=== PATIENT | male | born 1960 | race African-American/Black ===

== ENCOUNTER 2018-03-20 12:04 | Inpatient (IN) | payer BC, OTHER ==
[2018-03-20] VITALS (12 sets, daily range): BP systolic 121–192; BP diastolic 79–114
[~2018-03-20] VITALS: Ht 190.5 cm; Wt 139.3 kg
--- NOTE | ~2018-03-20 | EKG ---
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 : 1960 Requested By: Linda Barillas Order Number: [id number] MD: Roddy Betancourt Measurements Intervals [place] Rate: 79 P: 58 [place]: 169 QRS: 55 QRSD: 96 T: 86 QT: 381 QTc: 437 Interpretive Statements Sinus rhythm Inferior infarct, acute (RCA) Lateral leads are also involved No previous ECG available for comparison Electronically Signed On 03-22-2018 8:59:30 CDT by Roddy Betancourt [email or web address] <ELECTRONICALLY SIGNED> By: Roddy Betancourt MD, [facility] 03/22/18 0859 1159 1159 Roddy Betancourt MD, FACC /EPI
--- NOTE | ~2018-03-20 | CATHLAB ---
[facility] [address] [place] [address] INVASIVE PROCEDURE REPORT Name: ALLEGRA CHARLES Room #: 206-P [facility] IN M.R.#: [id number] Admission: 03/20/18 Attend Phys: Shade Brown, Discharge: 03/22/18 Date of : 56 Date of Service: 03/22/182003 Report #: [id number] THIS REPORT FOR: //name// APPROVED REPORT Study performed: 03/20/2018 12:31:07 Patient Details Patient Status: In-Patient Room #: The patient is a 57 year-old male Event Personnel Shade Brown Senior Field Service Engineer, Marcos Mar RN, Brent Urbano RN RN, Esvin Hawkins, Chaparrita Mcclendon Monitor Procedures Performed Art Access - R femoral artery* 11413 Initial Mod Sed Same Phys/QHP Gr5y 122496 62634 Mod Sed Same Phys/QHP Ea 047016 Left Heart Cath w/or w/o Coronaries 4124309 [facility] Aortogram Abdominal Peripheral Angio 862179 MARCI Revasc AMI Total/Sub Single RCA C9606 AMIREVSING Hemostasis w/ Mynx Indication STEMI Procedure Narrative The patient was brought emergently to the Cardiac Catheterization Laboratory and was prepped and draped in a sterile manner. The Right Groin^ was infiltrated with 1% Lidocaine subcutaneous anesthesia. A PINNACLE 6FR Sheath #[id number] sheath was inserted into the RFA^. Coronary angiography was performed using coronary diagnostic catheters. The right coronary system was accessed and visualized with a JR 4 catheter. The left coronary system was accessed and visualized with a JL 5 catheter. The left ventricle was accessed and visualized with a Pigtail catheter. Left ventriculogram was performed in PALMER projection. An aortogram of the abdominal aorta was performed. Pre-demployment femoral angiogram was performed . Closure device was deployed with a 6 Fr Mynx. The patient tolerated the procedure well and there were no complications associated with the procedure. There was no hematoma. Intraoperative Conscious Sedation Sedation start time: 12:48 Case end Time: 13:[address] [address] INVASIVE PROCEDURE REPORT Name: RAMIRO CHARLESY Room #: [facility] IN ..#: [id number] Admission: 03/20/18 Attend Phys: Shade Brown, Discharge: 03/22/18 Date of : 56 Date of Service: 03/22/[address] [facility] Report #: [id number] Fentanyl 50 mcg Versed 2 mg Fluoro Time: 6.60 minutes Dose: DAP 69253.00 cGycm2 1580 mGy Contrast Type and Amount: Visipaque 180 ml Hemodynamics The aortic pressure is 113/65 mmHg with a mean of 83 mmHg. The left ventricular pressure is 137/13 mmHg with a mean of mmHg. The left ventricular end diastolic pressure is 15 mmHg. PCI Technique Lesion Percutaneous coronary intervention was performed on the mid right coronary artery. A LAUNCHER 6FR JR 4 #[id number] Guide Catheter was used to engage the ostium. A Luge Wire .014 x 182CM #[id number] Interventional Guidewire was used to cross the lesion. BALLOON DILATION A Balloon catheter Sprinter OTW 4.0 x 15 #[id number] was inserted and inflated up to 8.00atm for 23seconds. Additional Inflation: 8.00atm for 25seconds. STENT DEPLOYMENT A drug-eluting stent RESOLUTE BINTA RX 4.5 X 18 #[id number] was inserted and inflated up to 16.00atm for 36seconds. Conclusion #1 successful emergent PTCA stent of a subtotally occluded mid dominant RCA with clot formation healing 0% residual KASSIE grade 3 flow with placement of a 4.5 x 18 Binta drug-eluting stent postdilated to 4.8 mm KASSIE grade 3 blush also noted #2 left main large mildly disease giving rise to LAD and circumflex #3 a large LAD which extends to the apex with mild irregularities no occlusive disease #4 circumflex marginal nondominant but also large in caliber in moderate distribution no occlusive disease #5 normal left jugular size ejection fraction lower limits of normal with subtle inferior wall leg (expect this to improve) #6 abdominal aorta is intact there may be evidence of a small aneurysm or tortuosity. Will evaluate abdominal ultrasound outpatient <ELECTRONICALLY SIGNED> By: Shade Brown MD, FACC 03/22/182003 03 03 Shade Brown MD, FACC /INF
--- NOTE | ~2018-03-20 | H ---
[facility] [place] [address] HISTORY AND PHYSICAL Name: ALLEGRA CHARLES Room #: 206-P ADM IN M.R.#: [id number] Admission: 03/20/18 Attend Phys: Shade Brown MD, Discharge: Date of : 56 Report #: [id number] THIS REPORT FOR: //name// CC: Esvin Rodriguez MD FAM unknown Shade Thornton DATE OF SERVICE: 03/20/2018 HISTORY OF PRESENT ILLNESS: The patient is a 57-year-old -Polish male. He presents to the Emergency Room, brought in by his with an acute inferior wall myocardial infarction, significant ST elevation in inferior leads. No prior cardiac history. Multiple risk factors. One to two pack a day smoker, hypertension, hypercholesterolemia. He does take atorvastatin 20, lisinopril. He had one episode of pain last week with some minimal exertion, no recurrence of this, not had any warning of this, felt fairly well. 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 He used to work years for [employer] with a very physical job. He said on the couch this morning had sudden onset of chest pain substernally with significant diaphoresis. Subsequently, his brought him to the Emergency Room. His pain has improved with heparin, morphine, aspirin and Lipitor but still has of injury. His rhythm has been stable. PAST MEDICAL HISTORY: Positive for bladder cancer, pneumothorax remotely, hypertension, hypercholesterolemia and had a lens replacement or revision 9 days ago. FAMILY HISTORY: Mother had premature coronary disease with an infarct in her 50s. SOCIAL HISTORY: He is , 2 daughters. He used to work years for [employer]. 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 REVIEW OF SYSTEMS: Negative except for some nocturia. Lab work is currently pending. PHYSICAL EXAMINATION: GENERAL: He is alert, pleasant. VITAL SIGNS: Pulse 79, blood pressure 140/80. HEENT: Eyes reveal xanthelasmas. Pharynx is clear. NECK: Shows preserved upstrokes without JVD or bruits. LUNGS: Clear. CARDIOVASCULAR: Regular rate and rhythm, S1, S2. ABDOMEN: Soft, obese, nontender. EXTREMITIES: No edema. Pulses diminished, but intact. [facility] [address] [place] [address] HISTORY AND PHYSICAL Name: ALLEGRA CHARLES Room #: [address] [place] [address] IN M.R.#: [id number] Admission: 03/20/18 Attend Phys: Shade Brown MD, Discharge: Date of : 56 Report #: [id number] NEUROLOGIC: Nonfocal. SKIN: Warm and dry without xanthoma or ulcer. MUSCULOSKELETAL: Mild arthritic changes are noted. ASSESSMENT: 1. Acute inferior wall myocardial infarction less than 2 hours into this event. 2. Hypertension. 3. Hypercholesterolemia. 4. Continued tobacco use. RECOMMENDATIONS AND PLAN: We will proceed emergently to the catheterization lab for possible angiography and intervention. He has been given morphine, heparin, aspirin and 80 of Lipitor. Risks, benefits, alternatives discussed very quickly with him and his . We are proceeding on emergently to the microbiology lab assistant. Thank you for asking me to assist in the care of this patient. By: 1244 1522 Shade Brown MD, FACC /nt
--- NOTE | ~2018-03-20 | EKG ---
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 : 1960 Requested By: Linda Barillas Order Number: [id number] MD: Roddy Betancourt Measurements Intervals [place] Rate: 71 P: 33 [place]: 171 QRS: 5 QRSD: 90 T: 91 QT: 386 QTc: 420 Interpretive Statements Sinus rhythm Atrial premature complexes Inferior infarct, acute (RCA) No previous ECG available for comparison Electronically Signed On 03-22-2018 9:00:01 CDT by Roddy Betancourt [email or web address] <ELECTRONICALLY SIGNED> By: Roddy Betancourt MD, [facility] 03/22/18 0900 1213 12 Roddy Betancourt MD, FACC /EPI
[2018-03-20] MEDS ORDERED: LISINOPRIL20 MG PO (12:20)
[2018-03-20] MEDS ORDERED: LIPITOR 20 MG T20 M1 PO (12:20)
[2018-03-20 12:21] LABS: ABSOLUTE NEUTROPHILS 3.7 thou/uL (1.4-8.2); HEMATOCRIT 45.6 % (42.0-52.0); HEMOGLOBIN 15.4 gm/dL (14.0-18.0); LYMPHOCYTES 44.5 % (24.0-44.0); MCHC 33.8 g/dL (28.0-37.0); MCV 91.9 fL (80.0-100.0); MONOCYTES 10.4 % (1.0-8.0); PLATELET COUNT 283 thou/uL (150-400); POLYS 41.1 % (36.0-66.0); RBC 4.96 mil/uL (4.50-6.00); RDW 13.9 % (10.5-14.5); WBC 8.9 thou/uL (4.0-11.0)
[2018-03-20] MEDS ORDERED: HYDROCHLOROTHIA25 M2 PO (12:21)
[2018-03-20 12:28] LABS: ANION GAP 9 mmol/L (7-16); BUN 18 mg/dL (7-18); CALCIUM 9.1 mg/dL (8.5-10.1); CHLORIDE 104 mmol/L (98-107); CO2 29 mmol/L (21-32); CREATININE 1.3 mg/dL (0.7-1.3); GLUCOSE 125 mg/dL (74-106); POTASSIUM 3.7 mmol/L (3.5-5.1); SODIUM 142 mmol/L (136-145)
[2018-03-20 12:36] LABS: ALBUMIN 3.9 g/dL (3.4-5.0); SGOT 18 U/L (15-37); SGPT 41 U/L (30-65); TOTAL BILIRUBIN 0.5 mg/dL (<0.1-1.0); TOTAL PROTEIN 7.7 g/dL (6.4-8.2); TROPONIN-I <0.06 ng/mL (<0.06)
[2018-03-21] VITALS (7 sets, daily range): BP systolic 118–155; BP diastolic 69–96
[2018-03-21 05:41] LABS: CHOLESTEROL 132 mg/dL (<200); HDL CHOLESTEROL 32 mg/dL (>40); LDL CHOLESTEROL 79 mg/dL (<100); TC:HDL 4.1 Ratio (Not establshd); TRIGLYCERIDE 107 mg/dL (<150); VLDL 21 mg/dL (<40)
[2018-03-21 05:42] LABS: SERUM ASSESSMENT Clear
[2018-03-21 05:47] LABS: TROPONIN-I 2.48 ng/mL (<0.06)
[2018-03-22 04:46] VITALS: BP 122/75
[2018-03-22 04:49] VITALS: BP 122/75
[2018-03-22] MEDS ORDERED: METOPROLOL SUCC25 M1 PO (06:48)
[2018-03-22] MEDS ORDERED: EFFIENT10 MG PO (06:48)
[2018-03-22] MEDS ORDERED: ASPIR-TRIN325 MG PO (06:48)
[2018-03-22 07:40] VITALS: BP 124/70
[2018-03-22 08:38] VITALS: BP 122/75
[2018-03-22 11:38] VITALS: BP 122/75
== END 2018-03-22 13:00 | disposition home or self-care (01) | DRG 247 ==
LOC: ER 12:04 → 2N 13:26
PROVIDERS: Internal Medicine Cardiovascular Disease; Student in an Organized Health Care Education/Training Program
PROC: 4A023N7 Measurement of Cardiac Sampling and Pressure, Left Heart, Percutaneous Approach (ICD-10-PCS; principal; 2018-03-20)
PROC: B211YZZ Fluoroscopy of Multiple Coronary Arteries using Other Contrast (ICD-10-PCS; principal; 2018-03-20)
PROC: 027034Z Dilation of Coronary Artery, One Artery with Drug-eluting Intraluminal Device, Percutaneous Approach (ICD-10-PCS; principal; 2018-03-20)
PROC: B410YZZ Fluoroscopy of Abdominal Aorta using Other Contrast (ICD-10-PCS; principal; 2018-03-20)
PROC: B215YZZ Fluoroscopy of Left Heart using Other Contrast (ICD-10-PCS; principal; 2018-03-20)
DX: I21.19 ST elevation (STEMI) myocardial infarction involving other coronary artery of inferior wall (principal); F17.210 Nicotine dependence, cigarettes, uncomplicated; I10 Essential (primary) hypertension; E78.00 Pure hypercholesterolemia, unspecified; E78.5 Hyperlipidemia, unspecified; Z79.899 Other long term (current) drug therapy; Z85.51 Personal history of malignant neoplasm of bladder; Z82.49 Family history of ischemic heart disease and other diseases of the circulatory system
CPT/HCPCS: 10081

== ENCOUNTER → 2020-10-19 | Outpatient (CLI) | payer OTHER ==
[~2020-10-19] MED LIST: ASPIR-TRIN325 MG PO; EFFIENT10 MG PO; HYDROCHLOROTHIA25 M2 PO; LIPITOR 20 MG T20 M1 PO; LISINOPRIL20 MG PO; METOPROLOL SUCC25 M1 PO
== END ==
LOC: SJCVCIMAG 08:23
PROVIDERS: ATTEND Internal Medicine Cardiovascular Disease
DX: R06.00 Dyspnea, unspecified (principal); I25.10 Atherosclerotic heart disease of native coronary artery without angina pectoris; I25.2 Old myocardial infarction; I71.4 Abdominal aortic aneurysm, without rupture; E11.9 Type 2 diabetes mellitus without complications; E78.5 Hyperlipidemia, unspecified; I10 Essential (primary) hypertension; R53.83 Other fatigue; Z98.61 Coronary angioplasty status

== ENCOUNTER → 2021-06-03 | Outpatient (CLI) | payer OTHER | LOC: SJCVC 10:18 | PROVIDERS: ATTEND Internal Medicine Cardiovascular Disease | DX: I25.10 Atherosclerotic heart disease of native coronary artery without angina pectoris (principal); I10 Essential (primary) hypertension; E78.5 Hyperlipidemia, unspecified; I25.2 Old myocardial infarction; E11.9 Type 2 diabetes mellitus without complications; I42.9 Cardiomyopathy, unspecified; G47.30 Sleep apnea, unspecified; R00.1 Bradycardia, unspecified; E78.00 Pure hypercholesterolemia, unspecified; Z79.82 Long term (current) use of aspirin; Z79.899 Other long term (current) drug therapy; Z82.49 Family history of ischemic heart disease and other diseases of the circulatory system; Z72.89 Other problems related to lifestyle; Z87.891 Personal history of nicotine dependence ==